=== PATIENT | male | born 2000 | race Caucasian/White ===

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

== ENCOUNTER 2021-04-21 13:13 | Emergency (ER) | payer MEDICAID, SELFPAY ==
[2021-04-21 13:17] VITALS: BP 133/82; PULSE 115; RESP 17; TEMP 37.2; O2SAT 97; BMI 34.2
--- NOTE | 2021-04-21 16:09 | EX.ED.DYSGE1 ---
HPI History of Present Illness Chief Complaint: General Illness Informant: patient Narrative Narrative: Presents for Covid testing. Reports congestion mild sore throat and headache since yesterday. He states his mother's boyfriend was diagnosed recently but has been in quarantine. He is not vaccinated. Denies any dyspnea. Denies vomiting or diarrhea. Denies any loss of taste or smell. Tolerating oral fluids. No other complaints. Prior similar symptoms: No PFSH PFSH Home Medications Vyvanse 50 mg PO DAILY 04/02/14 [History Last Taken Unknown] cephalexin 500 mg PO Q6 #28 cap 07/01/19 [Rx Last Taken Unknown] mupirocin 1 applic NASAL TID #1 tube 07/01/19 [Rx Last Taken Unknown] sulfamethoxazole-trimethoprim 1 tab PO BID #14 tab 07/01/19 [Rx Last Taken Unknown] cephalexin 500 mg PO Q6 #40 cap 07/29/19 [Rx Last Taken Unknown] sulfamethoxazole-trimethoprim 1 tab PO BID #20 tab 07/29/19 [Rx Last Taken Unknown] Allergy/AdvReac Type Severity Reaction Status Date / Time No Known Allergies Allergy Verified 07/29/19 22:23 Social History Smoking Status: Never smoker ROS ROS ED Constitutional Constitutional ED: Denies chills, fever(s) or sweats Eyes Eyes: Denies change in vision ENT ENT ED: Reports sore throat; Denies dysphagia Cardiovascular Cardiovascular: Denies chest pain, leg edema, palpitations or racing heartbeat Respiratory/Chest Respiratory/Chest: Denies cough, dyspnea or dyspnea on exertion Gastrointestinal Gastrointestinal: Denies abdominal pain, diarrhea, nausea or vomiting Genitourinary Genitourinary ED: Denies dysuria, hematuria or urinary frequency Musculoskeletal Musculoskeletal: Denies back pain, extremity pain or neck pain Integumentary Denies rash or wounds Neurologic Neurologic: Reports headache(s); Denies paresthesias or weakness EXAM Physical Exam Const Vital Signs: 04/21/21 13:17 04/21/21 15:51 Temperature 99.0 F Temperature Source Temporal Pulse Rate 115 H Respiratory Rate 17 Respiratory Effort Normal Non-Labored Respiratory Pattern Normal Blood Pressure 133/82 H Blood Pressure Mean 99 Pulse Ox 97 Oxygen Delivery Method Room Air Positive well nourished and well developed General Appearance ED: well developed and NAD HEENT Reports moist mucous membranes HEENT Narrative: Mild posterior pharyngeal erythema. Tonsils absent. No exudates. No trismus. normocephalic and atraumatic Eyes PERRL, EOMs intact bilaterally and conjunctivae normal General Eye ED: Yes normal appearance of both eyes Neck no lymphadenopathy and supple Neck Narrative: No meningismus General: Negative for tenderness Chest Wall Chest: Negative for tenderness Resp normal respiratory effort and normal air movement Effort and Inspection: symmetric chest movement; Negative for respiratory distress Cardio regular rhythm and no murmurs Rate: tachycardic Peripheral Pulses: pulses 2+ throughout GI normal to inspection, nondistended, normoactive bowel sounds and non-tender Palpation: Negative for guarding or rebound tenderness present Back/Spine no CVA tenderness and no thoracic nor lumbar tenderness Extremity normal to inspection General Extremety ED: Negative for edema or tenderness General Extremity: Negative for edema Neuro oriented x3 and no sensory deficits noted Sensorium / Orientation: awake and alert Skin no rashes or lesions noted and no wounds MDM MDM MDM Narrative Medical decision making narrative: Rapid Covid obtained returned negative. Patient does have erythema posterior pharynx, no exudates. Discussed viral nature at this time. Discussed with patient possibility of false negative Covid due to onset only for day. He will monitor for worsening symptoms. Return precautions discussed. He will continue Tylenol and Motrin as needed continue oral fluids. All questions were answered. Patient is being discharged under pandemic conditions under declared global, national and state disaster activation, with limited medical resources. Patient and community understands this. Results discussed in layman's terms to the patient satisfaction. All questions answered in layman's terms. Patient understands importance of follow-up care as directed. Patient has been instructed to return to the ED immediately if new symptoms, problems, or questions occur. We mutually agree with the plan of disposition. The patient understand that they may call or return with any questions or concerns at any time. Discharge Plan Triage Chief Complaint: General Illness ED Provider: Carlos Crump Dx/Rx/DC Orders Clinical Impression: Pharyngitis, Suspected 2019-nCoV infection Instructions: Coronavirus Disease 2019 (COVID-19): Caring for Yourself or Others, Self-Care for Sore Throats Prescriptions: No Action Vyvanse 50 mg PO DAILY RF: 0 sulfamethoxazole-trimethoprim 1 TABLET tablet 1 tab PO BID Qty: 14 RF: 0 mupirocin 1 APPLIC ointment 1 applic NASAL TID Qty: 1 RF: 0 cephalexin 500 MG capsule 500 mg PO Q6 Qty: 28 RF: 0 sulfamethoxazole-trimethoprim 1 TABLET tablet 1 tab PO BID Qty: 20 RF: 0 cephalexin 500 MG capsule 500 mg PO Q6 Qty: 40 RF: 0 Primary Care Provider: Erick Jackson Referrals: Erick Jackson MD [Primary Care Provider] - 1 Week if not improving Activity Restrictions/Additional Instructions: Your day 1 of symptoms, there is possibility of false negative from rapid test today. Monitor for worsening symptoms. Continue Tylenol Motrin and oral fluids. Disposition Disposition: Home, Self Care
[2021-04-21 16:26] VITALS: BP 109/74; PULSE 62; RESP 15; O2SAT 98
== END 2021-04-21 16:27 | disposition home or self-care (01) ==
LOC: ED 16:20
PROVIDERS: Emergency Provider Emergency Medicine; PCP Pediatrics
DX: J02.9 Acute pharyngitis, unspecified (principal); Z20.822 Contact with and (suspected) exposure to COVID-19
CPT/HCPCS: 87426; 99282

== ENCOUNTER 2021-04-24 06:57 | Emergency (ER) | payer MEDICAID, SELFPAY ==
[2021-04-24 06:58] VITALS: BP 123/78; PULSE 89; RESP 16; TEMP 36.1; O2SAT 100; BMI 33.3
--- NOTE | 2021-04-24 07:08 | EX.ED.DYSGE1 ---
HPI History of Present Illness Chief Complaint: Cold Sx Informant: patient Onset/Context/Timing Onset: Days (4 days) Context: Gradual Onset Current Severity: Mild Maximum Severity: Mild Narrative Narrative: Patient presents with continued cold symptoms. Patient was seen on the with 1 day history of congestion and sore throat. He tested negative for Covid at that time. Patient states he continues to have symptoms and was told it could have been a false negative test and is requesting a another test before going back to work. He reports temperature in the high 99 range. He has mild cough with clear sputum. PFSH PFSH no medical history Home Medications Vyvanse 50 mg PO DAILY 04/02/14 [History Last Taken Unknown] cephalexin 500 mg PO Q6 #28 cap 07/01/19 [Rx Last Taken Unknown] mupirocin 1 applic NASAL TID #1 tube 07/01/19 [Rx Last Taken Unknown] sulfamethoxazole-trimethoprim 1 tab PO BID #14 tab 07/01/19 [Rx Last Taken Unknown] cephalexin 500 mg PO Q6 #40 cap 07/29/19 [Rx Last Taken Unknown] sulfamethoxazole-trimethoprim 1 tab PO BID #20 tab 07/29/19 [Rx Last Taken Unknown] Allergy/AdvReac Type Severity Reaction Status Date / Time No Known Allergies Allergy Verified 07/29/19 22:23 Social History Smoking Status: Never smoker ROS ROS ED Constitutional Constitutional ED: Denies chills or fever(s) Eyes Eyes: Denies change in vision ENT ENT ED: Reports sore throat and other Details: Congestion Cardiovascular Cardiovascular: Denies chest pain Respiratory/Chest Respiratory/Chest: Reports cough and sputum; Denies dyspnea Gastrointestinal Gastrointestinal: Denies abdominal pain, diarrhea, nausea or vomiting Genitourinary Genitourinary ED: Denies dysuria Musculoskeletal Musculoskeletal: Denies back pain Integumentary Denies rash Neurologic Neurologic: Denies headache(s) or weakness Allergic/Immunologic Allergic/Immunologic ED: Denies urticaria EXAM Physical Exam Const Vital Signs: 04/24/21 06:58 Temperature 96.9 F L Temperature Source Oral Pulse Rate 89 Respiratory Rate 16 Respiratory Effort Normal Non-Labored Respiratory Pattern Normal Blood Pressure 123/78 H Blood Pressure Mean 93 Pulse Ox 100 Oxygen Delivery Method Room Air Positive well nourished and well developed General Appearance ED: well developed HEENT Reports normocephalic, head/scalp atraumatic and TM's clear HEENT Narrative: Posterior pharynx examination unremarkable. Tympanic Membrane ED: Yes TM's clear Eyes PERRL and EOMs intact bilaterally Neck supple Chest Wall inspection of chest normal and palpation of chest normal Resp normal respiratory effort and clear to auscultation bilaterally Cardio regular rate and regular rhythm GI normal to inspection, nondistended, normoactive bowel sounds Palpation: soft Extremity normal to inspection Neuro oriented x3 and no sensory deficits noted Sensorium / Orientation: alert Motor Exam: strength 5/5 throughout Psych mental status grossly normal Skin no rashes or lesions noted MDM MDM MDM Narrative Medical decision making narrative: Rapid Covid test obtained. Test results will be texted to him. Treatment and Re-Evaluation Comments:: Continued supportive care measures are discussed. Discharge Plan Triage Chief Complaint: Cold Sx ED Provider: Cassie Obregon Dx/Rx/DC Orders Clinical Impression: URI (upper respiratory infection) Instructions: ED URI, Viral, No Abx (Adult) Prescriptions: No Action Vyvanse 50 mg PO DAILY RF: 0 sulfamethoxazole-trimethoprim 1 TABLET tablet 1 tab PO BID Qty: 14 RF: 0 mupirocin 1 APPLIC ointment 1 applic NASAL TID Qty: 1 RF: 0 cephalexin 500 MG capsule 500 mg PO Q6 Qty: 28 RF: 0 sulfamethoxazole-trimethoprim 1 TABLET tablet 1 tab PO BID Qty: 20 RF: 0 cephalexin 500 MG capsule 500 mg PO Q6 Qty: 40 RF: 0 Primary Care Provider: Erick Jackson Referrals: Erick Jackson MD [Primary Care Provider] - As Needed Disposition Disposition: Home, Self Care
== END 2021-04-24 07:22 | disposition home or self-care (01) ==
LOC: ED 07:22
PROVIDERS: Emergency Provider Emergency Medicine; PCP Pediatrics
DX: J06.9 Acute upper respiratory infection, unspecified (principal)
CPT/HCPCS: 87426; 99282

== ENCOUNTER 2022-11-10 14:30 | Outpatient (RCR) | payer MEDICAID, SELFPAY ==
--- NOTE | 2022-11-05 15:34 | HP.OTEVAL ---
Patient's Visit Information RODRIGO HOLLIS is a 21 year old M, referred to Occupational Therapy by YEMI Rebolledo, with a diagnosis of right hand pain. Date of Evaluation: 11/05/22 Occupational Therapist: Christel Basurto, OTR/David, CHT - Subjective This 21 year old male was seen for OT eval with dx of right hand pain- pt states he is not sure what he did. pt states his hand started hurting for a while about- pt states pain about 1-2 years. pt states he has been wearing a brace since . 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 pt had x ray and they said he had no fractures. 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 Goal:: pt will report no pain greater than 1/10 with wt. 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 bearing. with palpation throughout the SL region pt is sore. pt would benefit from skilled OT services 2x week for 4 weeks. therapy will focus on decreasing pain and stabilization genie. and strengthening. pt demo understanding and agree to POC. Rehabilitation Potential: Good - Anticipated Interventions A/AAROM/PROM, Strengthening, Modalities, Joint Protection/Energy Conservation, Ergonomic Education, Education re assistive Equipment, Education re Diagnosis - Visit Plan Frequency: 2x /Week Duration: 4 Weeks TEXT: Thank you for the opportunity to evaluate your patient. For Medicare and Medicare HMO plans, please review the plan of care and approve it. It will need to be FAXED BACK to us at [phone] for Medicare purposes. Please let me know if there are questions or concerns regarding this plan of care. Physician Signature: Date:
--- NOTE | 2023-03-10 15:18 | HP.OT.NRP ---
Patient Information Patient Information: RODRIGO HOLLIS was seen in my office for initial evaluation on 11/05/22. The following Plan of Care was established for this patient: POC Established Initial Frequency: 2x /Week Initial Duration: 4 Weeks Anticipated Interventions Anticipated Interventions: A/AAROM/PROM, Strengthening, Modalities, Joint Protection/Energy Conservation, Ergonomic Education, Education re assistive Equipment and Education re Diagnosis Last Seen Last Seen: This patient was last seen in our office 11/10/22. Pertinent comments regarding their Occupational therapy will appear below: pt was seen 2 OT sessions and due to time lapse in services pt is d/c. At this point I will be discontinuing this patient from occupational therapy. I would be happy to see this patient again in the future if found appropriate by the physician. Thank you! Christel Basurto, OTR/L, CHT
== END 2022-11-10 19:00 | disposition home or self-care (01) ==
LOC: OT 14:30
PROVIDERS: PCP Pediatrics; Referring Provider Physician Assistant; Visit Provider Physician Assistant
DX: M79.641 Pain in right hand (principal)
CPT/HCPCS: 97035; 97140; 97166

== ENCOUNTER 2023-03-20 19:31 | Emergency (ER) | payer MEDICAID, SELFPAY ==
[2023-03-20 19:32] VITALS: BP 143/87; PULSE 128; RESP 14; TEMP 37.2; O2SAT 98; BMI 32.5
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
[2023-03-20 21:24] VITALS: PULSE 97; RESP 16; O2SAT 98
== END 2023-03-20 21:25 | disposition home or self-care (01) ==
PROVIDERS: Emergency Provider Emergency Medicine; PCP Pediatrics; Visit Provider Emergency Medicine
DX: R05.9 Cough, unspecified (principal); F17.290 Nicotine dependence, other tobacco product, uncomplicated
CPT/HCPCS: 71046; 99282

== ENCOUNTER 2023-06-14 18:48 | Emergency (ER) | payer SELFPAY ==
[2023-06-14 18:49] VITALS: BP 148/99; PULSE 98; RESP 16; TEMP 36.4; O2SAT 99; BMI 33.1
--- NOTE | 2023-06-14 19:58 | CT_ITS ---
INDICATION: Injury/Pain EXAMINATION: CT BRAIN - CT Head or Brain W/O Contrast Injection TECHNIQUE: Multiple axial images were obtained of the head without intravenous contrast. A radiation dose optimization technique was used for this scan. IV Contrast dosage and agent: None. RADIATION DOSAGE (If Supplied By Facility): CTDIvol = ( 44.99 ) mGy, DLP = ( 846.73 ) mGycm COMPARISON: No relevant prior examinations for comparison FINDINGS: HEMISPHERES: 1. The cerebral parenchyma, ventricular system, subarachnoid spaces have normal configuration and density. There is a normal gyral pattern. There is normal rick/white differentiation. No midline shift.. 2. The hemispheric white matter has normal appearance. Incidental note of a cavum septum pellucidum. 3. No intraparenchymal mass, hemorrhage, or acute territorial infarct. CEREBELLUM - BRAINSTEM: The cerebellum, brainstem, basilar and suprasellar cisterns have normal appearance. No Chiari malformation. PITUITARY: Infundibulum and pituitary have normal configuration. Midline structures appear normal. CSF SPACES: Appropriate for age. No hydrocephalus. Basal cisterns are patent. VESSELS: 1. No significant vascular calcifications in the cavernous carotid vessels. 2. No hyperdense vascular signs noted.. ORBITS AND PARANASAL SINUSES: 1. Normal appearance of the bony orbits. Normal appearance of the globes and retrobulbar soft tissues.. 2. Paranasal sinuses are clear with the exception of mucous retention cyst in the RIGHT maxillary antrum.. BONY ELEMENTS: Bony elements of the cranial vault, facial skeleton and skull base have normal appearance. SCALP AND SOFT TISSUES: Normal appearance of the soft tissues of the scalp and the visualized face OTHER: None ASPECTS Score for Acute Strokes: 10 CT/Brain/Head without Contrast IMPRESSION: 1. Normal CT examination of brain. 2. No intracranial evidence of acute traumatic injury. 3. No intracranial mass, hemorrhage or acute territorial infarct. 4. No fractures noted. 5. Incidental note of cavum septum pellucidum. 6. No radiographically significant sinus disease.. Electronically Signed: Jose Montana MD at 20:44 EST ,
--- NOTE | 2023-06-14 20:10 | RAD_ITS ---
INDICATION: Injury/Pain EXAMINATION/TECHNIQUE: X-RAY - XR Spine Lumbar 2 or 3 Views COMPARISON: None. FINDINGS: VERTEBRAE: Preserved vertebral body height. No fracture. No spondylolisthesis. Preservation of the normal lumbar lordosis. No significant facet arthropathy. Normal appearance of visualized sacrum, sacroiliac joints and visualized pelvic ring. DISCS: Disc spaces are maintained. INCLUDED ABDOMEN: Included bowel gas pattern is non-obstructive. RAD/Lumbar Spine 2 or 3 Views IMPRESSION: No evidence of lumbar spinal fracture or spondylolisthesis. Electronically Signed: Jose Montana MD at 20:57 EST ,
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
[2023-06-14 21:10] VITALS: RESP 14
== END 2023-06-14 21:11 | disposition home or self-care (01) ==
PROVIDERS: Emergency Provider Emergency Medicine; Visit Provider Emergency Medicine
DX: S09.90XA Unspecified injury of head, initial encounter (principal); S30.0XXA Contusion of lower back and pelvis, initial encounter; F17.290 Nicotine dependence, other tobacco product, uncomplicated; V49.88XA Car occupant (driver) (passenger) injured in other specified transport accidents, initial encounter
CPT/HCPCS: 70450; 72100; 99282

== ENCOUNTER 2023-07-18 19:05 | Emergency (ER) | payer SELFPAY ==
[2023-07-18 19:07] VITALS: BP 130/94; PULSE 117; RESP 18; TEMP 36.6; O2SAT 100; BMI 34.5
--- NOTE | 2023-07-18 19:09 | EKG12_ITS ---
Test Reason : PALPS Blood Pressure : / mmHG Vent. Rate : 098 BPM Atrial Rate : 098 BPM P-R Int : 150 ms QRS Dur : 090 ms QT Int : 346 ms P-R-T Axes : 042 060 041 degrees QTc Int : 441 ms Normal sinus rhythm Normal ECG Confirmed by SY MATHEWS, MARSHAL ([id number]), international editorial producer MILLIE FRIEDMAN ([id number]) on 07/26/2023 6:48:07 AM Referred By: Confirmed By:DENISE DAN MD
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
== END 2023-07-18 19:41 | disposition home or self-care (01) ==
PROVIDERS: Emergency Provider Emergency Medicine; PCP Preventive Medicine Occupational Medicine; Visit Provider Emergency Medicine
DX: R07.9 Chest pain, unspecified (principal); R00.2 Palpitations; F17.290 Nicotine dependence, other tobacco product, uncomplicated
CPT/HCPCS: 93005; 99282

== ENCOUNTER → 2023-09-15 | Outpatient (CLI) | payer OTHER, SELFPAY ==
[2023-09-15 17:00] LABS: Absolute Lymphocyte Count 2.91 X10^3/uL (0.83-4.51); Absolute Neutrophil Count 5.8 X10^3/uL (2.0-7.7); Basophil# 0.04 X10^3/uL; Basophil% 0.4 % (0-1); Eosinophil# 0.15 X10^3/uL; Eosinophils% 1.6 % (0-5); Hemoglobin 13.9 g/dL (13.0-16.5); Lymphocyte # 2.91 X10^3/ul (0.83-4.51); Lymphocyte % 30.6 % (19-41); Mean Corp Hgb Conc 33.9 g/dL (32-36); Mean Corpuscular Hgb 29.4 pg (27.0-32.0); Mean Corpuscular Volume 86.9 fL (80-94); Mean Platelet Vol. 10.5 fl (6.2-12.0); Monocyte# 0.64 X10^3/uL; Monocyte% 6.7 % (0-10); NRBC Flagged by Analyzer 0 % (0-5); Neutrophil # 5.75 X10^3/uL (2.7-7.7); Neutrophil % 60.5 % (47-70); Platelet Count 303 K/mm3 (150-450); RBC Distribution Width CV 12.3 % (11.6-14.6); RBC Distribution Width SD 39.2 fl (35.1-43.9); Red Blood Count 4.72 M/mm3 (4.6-6.2); White Blood Count 9.5 K/mm3 (4.4-11.0)
[2023-09-15 17:19] LABS: Vitamin B12 502 pg/mL (211-911); Vitamin D,25 Hydroxy 23.3 ng/mL
[2023-09-15 17:24] LABS: ALB/GLOB Ratio 1.1 RATIO (0.9-2.4); AST(SGOT) 29 U/L (15-37); Alanine Aminotransfer ALT/SGPT 36 U/L (16-61); Albumin, Serum 4.1 g/dL (3.2-5.0); Alkaline Phosphatase 77 U/L (45-117); Anion Gap 3 (5-15); BUN 16 mg/dL (7-18); BUN/Creat Ratio 15.2 RATIO (10-20); Calcium,Total 9.5 mg/dL (8.5-10.1); Chloride 105 mmol/L (98-107); Creatinine, Serum 1.05 mg/dL (0.70-1.30); EST Glomerular Filtration Rate 94 mL/min (>60); Est Glom Filt Rate - Afr Amer 114 mL/min (>60); Globulin 3.9 g/dL (2.2-4.2); Glucose 115 mg/dL (74-106); Potassium 4.3 mmol/L (3.5-5.1); Sodium Level 137 mmol/L (136-145); Thyroid Stim Hormone (TSH) 1.72 uIU/mL (0.358-3.74)
--- OUTSIDE RECORDS SUMMARY | 2023-09-15 18:58 | XMS RPT_ITS | CCD ---
Author Name Unknown Address [address] [place] [address] Organization [facility] Results Test Name Value Interpretation Reference Range Facil ity Summary Purpose Family History No Family History Records Found Advance Directives No Advanced Directives Records Found Additional Source Comments (unrecognized sect ion and content) No Status Records Found INFORMATION SOURCE (unrecogn ized section and content) FOR RECORDS PERTAINING TO PATIENTS WHO ARE OR HAVE BEEN ENROLLED IN A CHEMICAL DEPENDENCY/SUBSTANCEABUSE PROGRAM, SOME INFORMATION MAY BE OMITTED. This clinical summary was aggregated from multiple sources. Caution should be exercised in using it in the provision of clinical care. This summary normalizes information from multiple sources, and as a consequence, information in this document may materially change the coding, format and clinical context of patient data. In addition, data may be omitted in some cases. CLINICAL DECISIONS SHOULD BE BASED ON THE PRIMARY CLINICAL RECORDS. [email or web address] provides no warranty or guarantee of the accuracy or completeness of information in this document.
== END | disposition home or self-care (01) ==
LOC: BIMLAB 15:11
PROVIDERS: PCP Internal Medicine; Visit Provider Internal Medicine
DX: R51.9 Headache, unspecified (principal)
CPT/HCPCS: 36415; 80053; 82306; 82607; 84443; 85025

== ENCOUNTER 2024-02-19 11:57 | Emergency (ER) | payer OTHER, SELFPAY ==
[2024-02-19 11:59] VITALS: BP 144/76; PULSE 95; RESP 16; TEMP 36.2; O2SAT 98; BMI 31.2
--- NOTE | 2024-02-19 12:08 | ED.RN ---
Patient c/o bilateral hand/fingers tingling w/ bilateral facial numbness/tingling and states now left foot tingling.
[2024-02-19 12:10] VITALS: BMI 31.2
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
[2024-02-19 12:59] LABS: Absolute Lymphocyte Count 2.57 X10^3/uL (0.83-4.51); Absolute Neutrophil Count 4.6 X10^3/uL (2.0-7.7); Basophil# 0.05 X10^3/uL; Basophil% 0.6 % (0-1); Eosinophil# 0.07 X10^3/uL; Eosinophils% 0.9 % (0-5); Hematocrit 39.7 % (40-54); Hemoglobin 13.4 g/dL (13.0-16.5); Lymphocyte # 2.57 X10^3/ul (0.83-4.51); Lymphocyte % 33.1 % (19-41); Mean Corp Hgb Conc 33.8 g/dL (32-36); Mean Corpuscular Hgb 29.5 pg (27.0-32.0); Mean Corpuscular Volume 87.4 fL (80-94); Monocyte% 6.4 % (0-10); NRBC Flagged by Analyzer 0 % (0-5); Neutrophil # 4.55 X10^3/uL (2.7-7.7); Neutrophil % 58.7 % (47-70); Platelet Count 285 K/mm3 (150-450); RBC Distribution Width CV 12.6 % (11.6-14.6); RBC Distribution Width SD 39.8 fl (35.1-43.9); Red Blood Count 4.54 M/mm3 (4.6-6.2); White Blood Count 7.8 K/mm3 (4.4-11.0)
[2024-02-19 13:15] LABS: Anion Gap 7 (5-15); BUN 7 mg/dL (7-18); BUN/Creat Ratio 9.7 RATIO (10-20); Calcium,Total 8.9 mg/dL (8.5-10.1); Chloride 104 mmol/L (98-107); Creatinine, Serum 0.72 mg/dL (0.70-1.30); EST Glomerular Filtration Rate 144 mL/min (>60); Est Glom Filt Rate - Afr Amer 174 mL/min (>60); Estimated Creatinine Clearance 218.65 ml/min; Glucose 91 mg/dL (74-106); Potassium 3.4 mmol/L (3.5-5.1); Sodium Level 137 mmol/L (136-145)
[2024-02-19] MEDS: 0.9% Normal Saline (1000mL) 1,000 ML 999 ML IV (13:36)
[2024-02-19] MEDS: Potassium Chloride Oral Tablet 20 MEQ 40 MEQ PO (13:58)
[2024-02-19 14:05] VITALS: BP 136/88; PULSE 84; RESP 14; TEMP 36.1; O2SAT 100
== END 2024-02-19 14:14 | disposition home or self-care (01) ==
PROVIDERS: Nurse Practitioner; Emergency Provider Emergency Medicine; PCP Internal Medicine; Visit Provider Emergency Medicine
DX: R20.2 Paresthesia of skin (principal); E87.6 Hypokalemia; F17.290 Nicotine dependence, other tobacco product, uncomplicated
CPT/HCPCS: 80048; 85025; 96360; 99283; J7030; A4216

== ENCOUNTER 2024-05-25 23:11 | Emergency (ER) | payer OTHER, SELFPAY ==
[2024-05-25 23:13] VITALS: BP 147/77; PULSE 88; RESP 16; TEMP 36.8; O2SAT 99; BMI 31.1
--- NOTE | 2024-05-25 23:21 | EKG12_ITS ---
Test Reason : CP Blood Pressure : / mmHG Vent. Rate : 080 BPM Atrial Rate : 080 BPM P-R Int : 146 ms QRS Dur : 092 ms QT Int : 352 ms P-R-T Axes : 054 057 046 degrees QTc Int : 405 ms Normal sinus rhythm with sinus arrhythmia Normal ECG Confirmed by Benny Hester ([id number]), restaurant expeditor JEROMY ROSALES ([id number]) on 05/26/2024 1:41:37 PM Referred By: Confirmed By:Benny Hester
[2024-05-25 23:34] VITALS: PULSE 95; RESP 20; O2SAT 99
--- NOTE | 2024-05-25 23:44 | RAD_ITS ---
INDICATION: cp EXAMINATION/TECHNIQUE: X-RAY - XR Chest 2 Views COMPARISON: Prior study dated: 03/20/2023 FINDINGS: LINES/DEVICES: None. LUNGS: The lungs are well expanded. No consolidation, edema or effusion. No pneumothorax. MEDIASTINUM AND CARDIOVASCULAR STRUCTURES: Cardiac silhouette not enlarged. Central airways and mediastinal contour are unremarkable. BONES AND SOFT TISSUES: No acute abnormality. RAD/Chest PA and Lateral IMPRESSION: No acute pulmonary finding. Electronically Signed: Kaiser Busch MD at 23:53 EDT ,
--- NOTE | 2024-05-25 23:53 | ED.VIS.CHEST ---
HPI History of Present Illness Chief Complaint: Chest Pain Informant: patient and parent Onset/Context/Timing Onset: Today and Hours Activity at onset: gradual Timing: Continuous Quality: Positive for Dull Location: Left Chest Current Severity: Gone Maximum Severity: Mild Relieved By: Nothing Associated Symptoms: Positive for Lightheadedness; Negative for Nausea, Vomiting, Diaphoresis, Dyspnea, Cough, Fever, Acid Reflux or Palpitations Narrative Narrative: 23-year-old male with no past medical or surgical history. [place] [employer] [employer] [place] On the way home he felt somewhat lightheaded. He had some atypical left arm numbness and chest discomfort. That occurred around 9:45 PM. It is since resolved. He has no cardiac history. He has had no recent exertional dyspnea or exertional chest pain. He has never been evaluated for this before. A prior episode in the past but never got seen for it. He has no history of DVT or PE or risk factors. There is no family history of cardiac disease any young age or clotting problems. Currently is symptom-free. Prior Similar Symptoms: Yes and No Recent Illness/Hospitalization: No CVD Risk Factors: Negative for Hypertension, Diabetes, Hypercholesterolemia or Family History 1' </=55 PE Risk Factors: Negative for Recent Travel/Surgery, Recent Immobilization, Prior DVT or PE, Cancer or OCP + Smoking + >/=35 TAD Risk Factors: Negative for Marfan's Syndrome [facility] Medical History External hemorrhoid Stress headaches ADHD Right hand pain Recurrent MRSA abscess Home Medications ?Medication ?Instructions ?Recorded ?Last Taken ?Type NK 05/26/24 Unknown History Allergy/AdvReac Type Severity Reaction Status Date / Time No Known Allergies Allergy Verified 05/25/24 23:15 Family History Grandfather Heart disease Grandmother Hypertension Diabetes Brother Autism Surgical History Hx of tonsillectomy History of repair of congenital cleft palate Social History adopted: No household members: family current occupational status: employed current occupation: [employer] pets and animals: Yes pets and animals: dog(s) Smoking Status: Current every day smoker tobacco type: e-cigarettes Tobacco: How many years used: 3 Electronic Cigarette Use: not used alcohol intake: current alcohol intake frequency: a few times a month substance use type: does not use caffeine: No frequency: 3-4 times per week seatbelt use: always do you feel safe at home: Yes ROS ROS ED ROS Narrative Atypical chest discomfort. Lightheadedness. Constitutional Constitutional ED: Denies chills or fever(s) Eyes Eyes: Reports none ENT ENT ED: Denies ear pain Cardiovascular Cardiovascular: Reports as per HPI and chest pain; Denies palpitations or racing heartbeat Respiratory/Chest Respiratory/Chest: Denies cough or dyspnea Gastrointestinal Gastrointestinal: Denies abdominal pain Genitourinary Genitourinary ED: Denies dysuria or hematuria Musculoskeletal Musculoskeletal: Denies arthralgias Integumentary Denies abscess Neurologic Neurologic: Denies headache(s) Psychiatric Psychiatric: Denies anxiety or depression Endocrine Endocrinology: Denies cold intolerance Hematologic/Lymphatic Hematologic/Lymphatic: Denies easy bleeding Allergic/Immunologic Allergic/Immunologic ED: Denies mouth swelling EXAM Physical Exam Narrative Exam Narrative: Well-appearing male vital signs stable afebrile. Pulse ox 9 9% on room air no signs hypoxia. Clinically looks well sitting upright in bed. Mom present the room. H EENT exam normal. Neck nontender no JVD. Lungs clear to auscultation bilateral. Heart regular rate and rhythm rate about 80 no murmur. Chest wall ribs nontender. Abdomen soft nontender. Moving all 4 extremities. Calves are nontender without edema or cords. Normal strength. Normal sensation. Normal range of motion. 5 out of 5 child welfare caseworker strength. Equal symmetrical radial pulses. Back nontender. Chest nontender. He is awake and alert. No focal motor deficits. Benign exam. Const Vital Signs: 05/25/24 23:13 05/25/24 23:34 05/25/24 23:58 Temperature 98.2 F Temperature Source Oral Pulse Rate 88 95 89 Respiratory Rate 16 20 H 20 H Blood Pressure 147/77 H Blood Pressure Mean 100 Pulse Ox 99 99 Oxygen Delivery Method Room Air 05/26/24 00:00 05/26/24 00:15 Temperature Temperature Source Pulse Rate 87 81 Respiratory Rate 15 16 Blood Pressure Blood Pressure Mean Pulse Ox 99 Oxygen Delivery Method Positive well nourished and well developed; Negative for obese, cachectic, contractures or unkempt General Appearance ED: well developed and NAD; Negative for unkempt, cachectic, contractures or pallor Nutritional Appearance: Negative for cachectic or obese HEENT Reports moist mucous membranes normocephalic and atraumatic; Negative for trauma or tenderness Eyes PERRL and EOMs intact bilaterally General Eye ED: Negative for pale conjunctiva or scleral icterus Neck no lymphadenopathy, supple and no JVD General: Negative for tenderness Chest Wall inspection of chest normal and palpation of chest normal Chest: Negative for tenderness Resp normal respiratory effort and clear to auscultation bilaterally Effort and Inspection: Negative for respiratory distress Auscultation: Negative for rales, rhonchi or wheezes Cardio regular rate, regular rhythm, S1 normal heart sound, S2 normal heart sound and no murmurs Rate: Negative for bradycardia or tachycardic Peripheral Pulses: pulses 2+ throughout GI normal to inspection, nondistended, normoactive bowel sounds, soft to palpation, non-tender, non-distended and no masses Back/Spine no CVA tenderness and no thoracic nor lumbar tenderness Extremity normal to inspection General Extremety ED: Negative for edema, pulses abnormal or tenderness General Extremity: Negative for edema or pulses abnormal Neuro oriented x3 and CN's II-XII intact bilaterally Sensorium / Orientation: awake, alert, oriented to person, oriented to place and oriented to time; Negative for confused, lethargic or stuporous Motor Exam: strength 5/5 throughout Psych mental status grossly normal Appearance: Negative for unkempt Attitude: No agitated Mood & Affect: Negative for depressed, anxious or tearful Skin no rashes or lesions noted and no wounds General Skin Exam: Negative for jaundice or pallor Rashes: No rashes noted Trauma: Negative for abrasion, laceration or puncture Heart Score History: Slightly/Non-Suspicious ECG: Normal Age: </= 45 years Risk Factors: No Risk Factors Troponin: </= Normal Limit Score: 0 MDM MDM MDM Narrative Medical decision making narrative: 23-year-old with atypical not reproducible chest discomfort that is since resolved. He has a benign exam. He has a normal chest x-ray and EKG. Undergo cardiac workup mainly because of his recent lightheadedness. I suspect it will be negative. He will be discharged home. I do not think he needs a 2-hour troponin. He has no risk factors or family history of clotting problems I do not think he needs a D-dimer. Mom states she has a history of anxiety and panic attacks and wonders if this is what he may have had which is a possibility. Repeat exam patient is doing well at 12:38 AM. I do not think this is cardiac in etiology. He is pain-free. He is only 23 with no risk factors I do not think he needs a 2-hour troponin. He will be discharged home with outpatient follow-up as needed. Return if worse. Mom and patient are comfortable with the plan. This may be secondary to anxiety. History & Record Review Discussion w/independent historian: Patient and Family Lab Data Attestation: I reviewed the patient's lab results. Lab results narrative: CBC shows white count of 14.7. H&H 14 and 42. Platelets 279. Electrolytes unremarkable gap 6. Normal BUN and creatinine. Glucose 88. Troponin 5. Labs: Laboratory Results - last 24 hr 05/26/24 00:04 WBC 14.7 H RBC 4.78 Hgb 14.4 Hct 42.1 MCV 88.1 MCH 30.1 MCHC 34.2 RDW Std Deviation 39.7 RDW Coeff of Edmundo 12.4 Plt Count 279 MPV 10.6 Immature Gran % (Auto) 0.400 Neut % (Auto) 71.8 H Lymph % (Auto) 20.6 [place] % (Auto) 6.2 Eos % (Auto) 0.7 Baso % (Auto) 0.3 Absolute Neuts (auto) 10.5 H Absolute Lymphs (auto) 3.02 Nucleated RBC % 0 Sodium 140 Potassium 3.6 Chloride 106 Carbon Dioxide 28.0 Anion Gap 6 BUN 16 Creatinine 0.87 Estim Creat Clear Calc 180.63 Est GFR (MDRD) Af Amer 140 Est GFR (MDRD) Non-Af 116 BUN/Creatinine Ratio 18.3 Glucose 88 Calcium 9.0 Troponin I High Sens 5 Radiography Chest X-Ray - ED: 2 View, Read by ED Physician, Normal, Heart, Lungs, Mediastinum, Bony Structures and No Acute Disease Diagnostic Testing: Clinical Impression(s) from Imaging Studies Chest X-Ray 05/25/24 23:44 IMPRESSION: No acute pulmonary finding. Electronically Signed: Kaiser Busch MD at 23:53 EDT , Chest x-ray, 2 views, AP and lateral, interpreted myself shows no acute abnormality. Normal cardiac silhouette. Normal mediastinum. Normal lung pulido. No pneumothorax. No acute abnormalities. No effusions. Rhythm Strip Rhythm Strip: Sinus Rhythm Rate: 80 Ectopy: None EKG Initial EKG: Attestation: I personally reviewed and interpreted this EKG as follows: Interpretation: Sinus Rhythm and No Acute Injury Pattern Comments: Normal sinus rhythm rate 80 no acute signs of [place] or ischemia. Discharge Plan Triage Chief Complaint: Chest Pain ED Provider: Bridger Jo Dx/Rx/DC Orders Clinical Impression: Atypical chest pain Instructions: ED Chest Pain, Noncardiac Prescriptions: No Action NK Primary Care Provider: Pauline Boudreaux Referrals: Pauline Boudreaux MD [Primary Care Provider] - As Needed Activity Restrictions/Additional Instructions: Your labs, chest x-ray and EKG were all normal. Follow-up your primary care provider as needed. Return if feeling worse. This may or may not be secondary to anxiety. Print Language: Nauruan Disposition Disposition: Home, Self Care
--- NOTE | 2024-05-25 23:55 | ED.RN ---
REFERRED TO BRADY GALVEZ ALSO
[2024-05-25 23:58] VITALS: PULSE 89; RESP 20
[2024-05-26] VITALS: PULSE 87; RESP 15
[2024-05-26 00:15] VITALS: PULSE 81; RESP 16; O2SAT 99
[2024-05-26 00:15] LABS: Absolute Lymphocyte Count 3.02 X10^3/uL (0.83-4.51); Absolute Neutrophil Count 10.5 X10^3/uL (2.0-7.7); Basophil# 0.05 X10^3/uL; Basophil% 0.3 % (0-1); Eosinophil# 0.11 X10^3/uL; Eosinophils% 0.7 % (0-5); Hematocrit 42.1 % (40-54); Hemoglobin 14.4 g/dL (13.0-16.5); Lymphocyte # 3.02 X10^3/ul (0.83-4.51); Lymphocyte % 20.6 % (19-41); Mean Corp Hgb Conc 34.2 g/dL (32-36); Mean Corpuscular Hgb 30.1 pg (27.0-32.0); Mean Corpuscular Volume 88.1 fL (80-94); Mean Platelet Vol. 10.6 fl (6.2-12.0); Monocyte# 0.91 X10^3/uL; Monocyte% 6.2 % (0-10); NRBC Flagged by Analyzer 0 % (0-5); Neutrophil # 10.53 X10^3/uL (2.7-7.7); Neutrophil % 71.8 % (47-70); Platelet Count 279 K/mm3 (150-450); RBC Distribution Width CV 12.4 % (11.6-14.6); RBC Distribution Width SD 39.7 fl (35.1-43.9); Red Blood Count 4.78 M/mm3 (4.6-6.2); White Blood Count 14.7 K/mm3 (4.4-11.0)
[2024-05-26 00:29] LABS: Anion Gap 6 (5-15); BUN 16 mg/dL (7-18); BUN/Creat Ratio 18.3 RATIO (10-20); Chloride 106 mmol/L (98-107); Creatinine, Serum 0.87 mg/dL (0.70-1.30); EST Glomerular Filtration Rate 116 mL/min (>60); Est Glom Filt Rate - Afr Amer 140 mL/min (>60); Estimated Creatinine Clearance 180.63 ml/min; Glucose 88 mg/dL (74-106); Potassium 3.6 mmol/L (3.5-5.1); Sodium Level 140 mmol/L (136-145); Troponin-I HS (w/2H Reflex) 5 pg/mL (3.0-78.0)
[2024-05-26 00:46] VITALS: BP 145/54; PULSE 85; RESP 20; TEMP 36.7; O2SAT 95
[2024-05-26 02:05] LABS: Reflex Troponin-HS? (from REC) Y
== END 2024-05-26 00:46 | disposition home or self-care (01) ==
PROVIDERS: Emergency Provider Emergency Medicine; PCP Internal Medicine; Visit Provider Emergency Medicine
DX: R07.89 Other chest pain (principal); R42 Dizziness and giddiness; F41.9 Anxiety disorder, unspecified; F90.9 Attention-deficit hyperactivity disorder, unspecified type; F17.290 Nicotine dependence, other tobacco product, uncomplicated
CPT/HCPCS: 71046; 80048; 84484; 85025; 93005; 99283; A4216

== ENCOUNTER 2024-07-20 20:40 | Emergency (ER) | payer OTHER, SELFPAY ==
[2024-07-20 20:42] VITALS: BP 116/90; PULSE 110; RESP 18; TEMP 37.7; O2SAT 100; BMI 30.2
--- NOTE | 2024-07-20 21:35 | RAD_ITS ---
STUDY: X-RAY CHEST REASON FOR EXAM: Male, 23 years old. Cough, fever TECHNIQUE: Frontal and lateral views of the chest. COMPARISON: May 25, 2024 FINDINGS: The lungs are clear and expanded. There is no demonstrated pleural abnormality. Normal size heart. Normal mediastinum and jerald. Normal visualized pulmonary arteries. Normal visualized aortic arch and descending thoracic aorta. Normal visualized thoracic spine. Normal visualized ribs, clavicles, and shoulders. There is no demonstrated abnormality of the visualized soft tissue structures of the upper abdomen. RAD/Chest PA and Lateral IMPRESSION: Normal x-ray examination of the chest. Electronically Signed: Ramon Singh MD at 23:33 EST ,
--- NOTE | 2024-07-20 21:53 | EX.ED.DYSGE1 ---
HPI <YEMI Cole - Last Filed: 07/20/24 22:09> History of Present Illness Chief Complaint: Cold Sx Narrative Narrative: Patient presenting today with flulike symptoms that started a few days ago. He reports a sore throat, bilateral ear pain, headache, body aches, chills, nasal congestion, and a mild nonproductive cough. He denies fevers, shortness of breath, chest pain, abdominal pain, nausea, and vomiting. He reports that he is healthy otherwise. [facility] <YEMI Cole - Last Filed: 07/20/24 22:09> [facility] Medical History External hemorrhoid Stress headaches ADHD Right hand pain Recurrent MRSA abscess Home Medications ?Medication ?Instructions ?Recorded ?Last Taken ?Type lorazepam 1 mg tablet (Ativan) 1 mg PO DAILY PRN anxiety 10 days 05/26/24 Unknown Rx #5 tabs ibuprofen 600 mg tablet 600 mg PO 4X/DAY PRN fever or pain 07/20/24 Unknown Rx #40 tabs prednisone 10 mg tablet 10 mg PO DAILY #48 TABLETS 07/20/24 Unknown Rx Allergy/AdvReac Type Severity Reaction Status Date / Time No Known Allergies Allergy Verified 07/20/24 20:44 Family History Grandfather Heart disease Grandmother Hypertension Diabetes Brother Autism Surgical History Hx of tonsillectomy History of repair of congenital cleft palate Social History adopted: No household members: family current occupational status: employed current occupation: [employer] pets and animals: Yes pets and animals: dog(s) Smoking Status: Current every day smoker tobacco type: e-cigarettes Tobacco: How many years used: 3 Electronic Cigarette Use: not used alcohol intake: current alcohol intake frequency: a few times a month substance use type: does not use caffeine: No frequency: 3-4 times per week seatbelt use: always do you feel safe at home: Yes ROS <YEMI Cole - Last Filed: 07/20/24 22:09> ROS ED Constitutional Constitutional ED: Reports chills; Denies fever(s) ENT ENT ED: Reports ear pain bilateral, rhinorrhea and sore throat Cardiovascular Cardiovascular: Denies chest pain Respiratory/Chest Respiratory/Chest: Reports cough; Denies dyspnea Gastrointestinal Gastrointestinal: Denies abdominal pain, nausea or vomiting Musculoskeletal Musculoskeletal: Reports myalgias; Denies neck pain Integumentary Denies rash Neurologic Neurologic: Denies weakness EXAM <Nani Deleon PA - Last Filed: 07/20/24 22:09> Physical Exam Const Vital Signs: 07/20/24 20:42 07/20/24 22:06 Temperature 99.8 F H Temperature Source Oral Pulse Rate 110 H Respiratory Rate 18 Respiratory Effort Normal Respiratory Pattern Normal Blood Pressure 116/90 H Blood Pressure Mean 98 Pulse Ox 100 Oxygen Delivery Method Room Air Positive well nourished, well developed and no apparent distress General Appearance ED: well developed HEENT Reports normocephalic, head/scalp atraumatic and TM's clear HEENT Narrative: Posterior pharynx slightly erythematous, no tonsillar exudate, uvula midline, no trismus, no drooling Tympanic Membrane ED: Yes TM's clear bilateral Mouth ED: Yes moist mucous membranes normal Eyes PERRL and EOMs intact bilaterally Neck full ROM and supple Neck Narrative: Right posterior auricular lymphadenopathy, posterior occipital lymphadenopathy. Chest Wall inspection of chest normal Resp normal respiratory effort and clear to auscultation bilaterally Cardio regular rate and regular rhythm GI soft to palpation, non-tender, non-distended and no masses Back/Spine normal ROM and normal to inspection Extremity normal to inspection and full ROM Neuro oriented x3, CN's II-XII intact bilaterally, moves all extremities, no focal motor deficits and no sensory deficits noted Sensorium / Orientation: awake and alert Psych mental status grossly normal and thought process normal Skin no rashes or lesions noted and no wounds <Dr. Antonio Romero, DO - Last Filed: 07/20/24 23:42> Physical Exam Const Vital Signs: 07/20/24 20:42 07/20/24 22:06 Temperature 99.8 F H Temperature Source Oral Pulse Rate 110 H Respiratory Rate 18 Respiratory Effort Normal Respiratory Pattern Normal Blood Pressure 116/90 H Blood Pressure Mean 98 Pulse Ox 100 Oxygen Delivery Method Room Air <Dr. Gerard Chase, DO - Last Filed: 07/21/24 01:06> Physical Exam Const Vital Signs: 07/20/24 20:42 07/20/24 22:06 Temperature 99.8 F H Temperature Source Oral Pulse Rate 110 H Respiratory Rate 18 Respiratory Effort Normal Respiratory Pattern Normal Blood Pressure 116/90 H Blood Pressure Mean 98 Pulse Ox 100 Oxygen Delivery Method Room Air [facility] <YEMI Cole - Last Filed: 07/20/24 22:09> [facility] Narrative Medical decision making narrative: Patient presenting today with flulike symptoms that started a few days ago. He reports he has had nasal congestion over the past few weeks but his flu symptoms did not start until 3 to 4 days ago. He is nontoxic-appearing. He is slightly tachycardic initially, he does not appear dehydrated. He was given ibuprofen here and is tolerating p.o. Gatorade. I suspect a viral illness. Rapid strep, COVID/influenza/RSV swabs were obtained, monotest obtained. Chest x-ray obtained to rule out infiltrate and is negative. Labs are pending. Lab Data Labs: Laboratory Results - last 24 hr 07/20/24 22:01 Monoscreen POSITIVE H Radiography Diagnostic Testing: Clinical Impression(s) from Imaging Studies Chest X-Ray 07/20/24 21:35 IMPRESSION: Normal x-ray examination of the chest. Electronically Signed: Ramon Singh MD at 23:33 EST Reading Location ID and State: [facility] / [place] , Service support , <Dr. Antonio Romero DO - Last Filed: 07/20/24 23:42> [facility] History & Record Review Discussion w/independent historian: Patient Lab Data Labs: Laboratory Results - last 24 hr 07/20/24 22:01 Monoscreen POSITIVE H Radiography Diagnostic Testing: Clinical Impression(s) from Imaging Studies Chest X-Ray 07/20/24 21:35 IMPRESSION: Normal x-ray examination of the chest. Electronically Signed: Ramon Singh MD at 23:33 EST , Chest x-ray as interpreted by the emergency medicine physician reveals no acute infiltrate pneumothorax or pleural effusion Treatment and Re-Evaluation :: Patient was signed out to me while awaiting the results of his strep COVID influenza RSV Monospot and chest x-ray test. Chest x-ray revealed no acute lung pathology COVID flu RSV and strep were negative. The patient's Monospot test is positive which does correlate with his sore throat and fatigue. He does not have any enlargement of his spleen. At this time symptoms have improved with just ibuprofen he will be given IV Decadron secondary to the inflammatory process. However as he is not having respiratory distress or difficulty with secretions there is no need for further workup and he can be discharged home with symptomatic care <Dr. Gerard Chase, DO - Last Filed: 07/21/24 01:06> [facility] Narrative Medical decision making narrative: Patient presenting today with flulike symptoms that started a few days ago. He reports he has had nasal congestion over the past few weeks but his flu symptoms did not start until 3 to 4 days ago. He is nontoxic-appearing. He is slightly tachycardic initially, he does not appear dehydrated. He was given ibuprofen here and is tolerating p.o. Gatorade. I suspect a viral illness. Rapid strep, COVID/influenza/RSV swabs were obtained, monotest obtained. Chest x-ray obtained to rule out infiltrate and is negative. Labs are pending. Supervisory Physician Note Patient was seen and examined with the Advanced Practice Provider. Nursing notes and vital signs have been reviewed. Pertinent old records have been reviewed. I agree with the essential elements of the ELLEN's history, physical exam, assessment, and plan. The differential diagnosis and management options were discussed with the ELLEN. I participated in determining and agree with the management, procedures, final impression and disposition as documented. See changes noted by me. Please see addendum or separate note for any additional details. 23-year-old male no significant past medical history presents for evaluation of flulike symptoms. Family member recently had pneumonia. Gen: A&O x3, NAD Head: Normocephalic, atraumatic Eyes: No sclera icterus, conjunctiva clear, PERRL, EOMI ENT: TMs clear BL, moist mucous membranes, posterior oropharynx mildly erythematous, uvula midline, tonsils not enlarged, no tonsillar exudates, + nasal congestion Neck: Trachea midline, No JVD, Full ROM, No meningismus CV: RRR, no murmurs, no peripheral edema Resp: Lungs CTA BL, no w/r/c GI: Abd soft, non-distended, non-tender, no r/r/g Musc: Full ROM, no deformity Skin: Warm, dry, no rash Neuro: Alert, oriented, grossly intact, sensation intact Psych: Cooperative, appropriate mood and affect On presentation, patient mildly tachycardic. His temperature is 99.8 ?F. I suspect his tachycardia is secondary to his general malaise as well as temperature. Ibuprofen. Patient tolerating p.o. intake without signs of dehydration. No fluids needed. COVID, flu, RSV ordered along with rapid strep and mono. Chest x-ray ordered. Chest x-ray was personally reviewed interpreted by myself, no pneumonia, effusion, cardiomegaly, pneumothorax. Respiratory panel, strep, monotest was still pending at the end of my shift. Patient was signed out to evening physician and final disposition were pending results but likely discharge home. On chart review, COVID, flu, RSV negative. Strep PCR negative. Morehouse testing positive. Pateient was discharge home. Impression: 1. Mononucleosis Lab Data Labs: Laboratory Results - last 24 hr 07/20/24 22:01 Monoscreen POSITIVE H Radiography Diagnostic Testing: Clinical Impression(s) from Imaging Studies Chest X-Ray 07/20/24 21:35 IMPRESSION: Normal x-ray examination of the chest. Electronically Signed: Ramon Singh MD at 23:33 EST , Discharge Plan Triage Chief Complaint: Cold Sx ED Midlevel Provider: Nani Deleon ED Provider: Gerard Chase Dx/Rx/DC Orders Clinical Impression: Mononucleosis Instructions: ED Mononucleosis Prescriptions: New ibuprofen 600 mg tablet 600 mg PO 4X/DAY PRN (Reason: fever or pain) Qty: 40 0RF prednisone 10 mg tablet 10 mg PO DAILY Qty: 48 0RF Rx Instructions: 6 po qd x 3 days, 4 po qd x 3 days, 2 po qd x 3 days, 1 po qd x 3 days No Action lorazepam [Ativan] 1 mg tablet 1 mg PO DAILY PRN (Reason: anxiety) 10 Days Qty: 5 0RF Rx Instructions: As needed for anxiety. If you use the Ativan no driving. No alcohol use. Stand Alone Forms: ED Work / School Excuse Primary Care Provider: Pauline Boudreaux Referrals: Pauline Boudreaux MD [Primary Care Provider] - Activity Restrictions/Additional Instructions: You tested positive for mononucleosis/mono. This can cause enlargement of your spleen and therefore you need to avoid any high risk activity or contact sports as this could lead to a splenic rupture. Continue with Tylenol and/or ibuprofen for pain and fever control and take the steroid as directed to help with inflammation. Keep yourself well-hydrated and return to the ER should you have any further concerns Print Language: Guyanese Disposition Disposition: Home, Self Care Discharge Date/Time: 07/20/24 23:55
[2024-07-20] MEDS: Ibuprofen 600 MG Tablet PO (22:05)
[2024-07-20 23:01] LABS: Internal QC Validated? YES +Cl - CLEAR BKGD; Monotest POSITIVE (Negative); Record Kit Lot#, Mono 13241033
[2024-07-20] MEDS: dexAMETHasone 10 MG/ML Vial IV (23:47)
== END 2024-07-20 23:55 | disposition home or self-care (01) ==
PROVIDERS: Physician Assistant; Emergency Provider Surgery; PCP Internal Medicine; Visit Provider Surgery
DX: B27.90 Infectious mononucleosis, unspecified without complication (principal); F90.9 Attention-deficit hyperactivity disorder, unspecified type; Z86.14 Personal history of Methicillin resistant Staphylococcus aureus infection; F17.290 Nicotine dependence, other tobacco product, uncomplicated
CPT/HCPCS: 71046; 86308; 87631; 87651; 96374; 99282; A4216

== ENCOUNTER 2024-12-12 23:46 | Emergency (ER) | payer OTHER, SELFPAY ==
[2024-12-12 23:47] VITALS: BP 145/81; PULSE 100; RESP 16; TEMP 36.4; O2SAT 96; BMI 29.3
--- NOTE | 2024-12-13 00:19 | CT_ITS ---
PROCEDURE: SOFT TISSUE NECK WITH CONTRAST 12/13/2024 REASON FOR EXAM: ? EPIGLOTTITIS TECHNIQUE: CT of the soft tissues of the neck from the orbits to the upper mediastinum with intravenous contrast. CONTRAST: 75 cc Isovue 370 IV One or more dose reduction techniques were used (e.g., Automated exposure control, adjustment of the mA and/or kV according to patient size, use of iterative reconstruction technique). RADIATION DOSE SUMMARY: CTDlvol: 17.80 mGy DLP: 605.00 mGycm COMPARISON: None available FINDINGS: The epiglottis and aryepiglottic folds appear within limits. The palatine and lingual tonsils appear within limits. A couple areas of retropharyngeal calcification at the level of C4 and C5 may be sequela of previous infectious process or hemorrhage. No airway narrowing. Vallecula and piriform sinuses appear within limits. No abscess identified. Major vascular structures appear within limits. No adenopathy identified. The parotid and submandibular glands appear within limits. Likely cerumen plug opacify in the left external auditory canal and partial on the right. Mucous retention cyst inferior right maxillary sinus. Mastoids and orbits appear within limits. The visualized apices are clear. CT/Soft Tissue Neck WITH Contrast IMPRESSION: The epiglottis and aryepiglottic folds appear within limits. Likely cerumen plug opacify in the left external auditory canal and partial on the right. Reading Location: [id number]
[2024-12-13] MEDS: Ketorolac 30 MG/ML Syringe IV (00:29)
[2024-12-13] MEDS: dexAMETHasone 10 MG/ML Vial IV (00:29)
[2024-12-13] MEDS: 0.9% Normal Saline (1000mL) 1,000 ML 999 ML IV (00:29)
[2024-12-13 00:42] LABS: Absolute Lymphocyte Count 4.02 X10^3/uL (0.83-4.51); Basophil# 0.05 X10^3/uL; Basophil% 0.3 % (0-1); Eosinophil# 0.13 X10^3/uL; Eosinophils% 0.8 % (0-5); Hematocrit 40.3 % (40-54); Hemoglobin 13.9 g/dL (13.0-16.5); Lymphocyte # 4.02 X10^3/ul (0.83-4.51); Lymphocyte % 26.2 % (19-41); Mean Corp Hgb Conc 34.5 g/dL (32-36); Mean Corpuscular Hgb 29.3 pg (27.0-32.0); Mean Platelet Vol. 9.8 fl (6.2-12.0); Monocyte# 1.07 X10^3/uL; NRBC Flagged by Analyzer 0 % (0-5); Neutrophil # 10.02 X10^3/uL (2.7-7.7); Neutrophil % 65.4 % (47-70); Platelet Count 256 K/mm3 (150-450); RBC Distribution Width CV 12.3 % (11.6-14.6); RBC Distribution Width SD 38.1 fl (35.1-43.9); Red Blood Count 4.74 M/mm3 (4.6-6.2); White Blood Count 15.3 K/mm3 (4.4-11.0)
[2024-12-13 01:06] LABS: Anion Gap 11 (5-15); BUN 15 mg/dL (4-19); BUN/Creat Ratio 18.9 RATIO (10-20); Calcium,Total 9.2 mg/dL (7.6-11.0); Carbon Dioxide 24.4 mmol/L (21.0-32.0); Chloride 103 mmol/L (98-108); Creatinine, Serum 0.79 mg/dL (0.70-1.20); EST Glomerular Filtration Rate 128 (>60); Estimated Creatinine Clearance 191.99 ml/min (50-250); Glucose 113 mg/dL (70-99); Potassium 3.8 mmol/L (3.3-5.1); Sodium Level 139 mmol/L (133-145)
[2024-12-13 01:10] LABS: Lactic Acid < 1.0 mmol/L (0.0-2.0)
--- NOTE | 2024-12-13 01:42 | EDS_ITS ---
HPI History of Present Illness Chief Complaint: Sore Throat Informant: patient and parent Narrative Narrative: Patient is a 24-year-old male with past medical history of cleft palate as well as mononucleosis. He has been following with ENT secondary to recurrent bouts of sore throat. Patient and mother state he saw ENT earlier today and that they are performing an outpatient workup for potential infection. However mother and patient states that he has not been eating or drinking secondary to his throat pain and with concern for dehydration or potentially missed infection he was brought in for evaluation [facility] Medical History External hemorrhoid Stress headaches ADHD Right hand pain Recurrent MRSA abscess Home Medications ?Medication ?Instructions ?Recorded ?Last Taken ?Type lorazepam 1 mg tablet (Ativan) 1 mg PO DAILY PRN anxie ty 10 days 05/26/24 Unknow n Rx #5 tabs ibuprofen 600 mg tablet 600 mg PO 4X/DAY PRN fever o r pain 07/20/24 Unknown Rx #40 tabs prednisone 10 mg tablet 10 mg PO DAILY #48 TABLETS 1 09/20/23 Unknown Rx prednisolone 15 mg/5 mL oral 30 mg (10 mL) PO DAILY 7 days #70 12/13/24 Unknown Rx solution mL Allergy/AdvReac Type Severity Reaction Status Date / Time No Known Allergies Allergy Verified 12/12/24 23:46 Family History Grandfather Heart disease Grandmother Hypertension Diabetes Brother Autism Surgical History Hx of tonsillectomy History of repair of congenital cleft palate Social History adopted: No household members: family current occupational status: employed current occupation: [employer] pets and animals: Yes pets and animals: dog(s) Smoking Status: Current every day smoker tobacco type: e-cigarettes Tobacco: How many years used: 3 Electronic Cigarette Use: not used alcohol intake: current alcohol intake frequency: a few times a month substance use type: does not use caffeine: No frequency: 3-4 times per week seatbelt use: always do you feel safe at home: Yes ROS ROS ED Constitutional Constitutional ED: Denies chills or fever(s) Eyes Eyes: Denies change in vision ENT ENT ED: Reports sore throat; Denies rhinorrhea Cardiovascular Cardiovascular: Denies chest pain Respiratory/Chest Respiratory/Chest: Denies cough or dyspnea Gastrointestinal Gastrointestinal: Denies abdominal pain, diarrhea, nausea or vomiting Genitourinary Genitourinary ED: Denies dysuria Musculoskeletal Musculoskeletal: Reports neck pain Integumentary Denies rash Neurologic Neurologic: Denies headache(s) Hematologic/Lymphatic Hematologic/Lymphatic: Denies easy bleeding or easy bruising Allergic/Immunologic Allergic/Immunologic ED: Denies mouth swelling or tongue swelling EXAM Physical Exam Const Vital Signs: 12/12/24 23:47 12/13/24 01:57 Temperature 97.5 F L 98.7 F Temperature Source Temporal Pulse Rate 100 67 Respiratory Rate 16 12 Blood Pressure 145/81 H 116/70 Blood Pressure Mean 102 85 Pulse Ox 96 100 Positive well nourished and well developed General Appearance ED: well developed; Negative for pallor HEENT Reports dry mucous membranes HEENT Narrative: No tongue or lip swelling no oral lesions no airway edema or compromise Patient has dry mucous membranes Neurosurgical changes consistent with history of cleft palate repair and tonsillectomy. There is diffuse erythema in the posterior pharynx but no exudates or hard palate petechiae Patient does have a muffled change voice but no signs of trismus No brawny edema in the submental space to suggest Moreno angina Mouth ED: Yes dry mucous membranes Mouth: dry mucous membranes Eyes PERRL and EOMs intact bilaterally General Eye ED: Negative for scleral icterus Neck supple Neck Narrative: There is pain with palpation of the external thyroid cartilage without subcutaneous emphysema noted Resp normal respiratory effort and clear to auscultation bilaterally Cardio regular rate and regular rhythm Extremity normal to inspection Neuro oriented x3, CN's II-XII intact bilaterally and no sensory deficits noted Sensorium / Orientation: alert Motor Exam: strength 5/5 throughout Psych Mood & Affect: anxious Skin no rashes or lesions noted Skin Narrative: Skin turgor slightly increased consistent with mild dehydration General Skin Exam: Negative for jaundice or pallor MDM MDM MDM Narrative Medical decision making narrative: Patient arrived to the ER overall with stable vitals. Physical exam show changes consistent with pharyngitis as there is diffuse erythema in the posterior pharynx but there is no obvious findings to suggest peritonsillar or retropharyngeal abscess. As he does have a muffled voice and pain with palpation of the anterior neck there is concern for potential epiglottitis. Therefore I did elect to perform a CT of the soft tissues with IV contrast. As his history and exam also shows changes concerning for dehydration there is concern he may have acute kidney injury or electrolyte abnormality. He was given 1 L of IV fluid as well as Toradol and Decadron. This helped resolve his symptoms and improved his vital signs. The patient's white count is elevated at 15 but chart review reveals that he has been elevated in the past and I feel this is most likely a viral response or stress response. Otherwise his lactic acid is normal he does not have WILBER or clinically significant electrolyte abnormality. The CT of the neck reveals no findings of epiglottitis or secondary infection. The patient is already established with ENT and is receiving a workup from the office and as he does not have signs of WILBER systemic infection or epiglottitis or airway compromise he does not need placed in the hospital or IV antibiotics and he is otherwise safe for discharge History & Record Review Discussion w/independent historian: Patient and Family Lab Data Attestation: I reviewed the patient's lab results. Labs: Laboratory Results - last 24 hr 12/13/24 00:30 WBC 15.3 H RBC 4.74 Hgb 13.9 Hct 40.3 MCV 85.0 MCH 29.3 MCHC 34.5 RDW Std Deviation 38.1 RDW Coeff of Edmundo 12.3 Plt Count 256 MPV 9.8 Immature Gran % (Auto) 0.300 Neut % (Auto) 65.4 Lymph % (Auto) 26.2 Ford % (Auto) 7.0 Eos % (Auto) 0.8 Baso % (Auto) 0.3 Absolute Neuts (auto) 10.0 H Absolute Lymphs (auto) 4.02 Nucleated RBC % 0 Sodium 139 Potassium 3.8 Chloride 103 Carbon Dioxide 24.4 Anion Gap 11 BUN 15 Creatinine 0.79 Estim Creat Clear Calc 191.99 Est GFR (MDRD) Non-Af 128 BUN/Creatinine Ratio 18.9 Glucose 113 H Lactic Acid < 1.0 Calcium 9.2 Radiography Diagnostic Testing: Clinical Impression(s) from Imaging Studies Soft Tissue Neck CT 12/13/24 00:19 IMPRESSION: The epiglottis and aryepiglottic folds appear within limits. Likely cerumen plug opacify in the left external auditory canal and partial on the right. Reading Location: [facility] Discharge Plan Triage Chief Complaint: Sore Throat ED Provider: Antonio Romero Dx/Rx/DC Orders Clinical Impression: Pharyngitis, Dehydration, ADHD Instructions: ED Pharyngitis, Viral Prescriptions: New prednisolone 15 mg/5 mL solution 30 mg PO DAILY 7 Days Qty: 70 0RF No Action lorazepam [Ativan] 1 mg tablet 1 mg PO DAILY PRN (Reason: anxiety) 10 Days Qty: 5 0RF Rx Instructions: As needed for anxiety. If you use the Ativan no driving. No alcohol use. ibuprofen 600 mg tablet 600 mg PO 4X/DAY PRN (Reason: fever or pain) Qty: 40 0RF prednisone 10 mg tablet 10 mg PO DAILY Qty: 48 0RF Rx Instructions: 6 po qd x 3 days, 4 po qd x 3 days, 2 po qd x 3 days, 1 po qd x 3 days Primary Care Provider: Pauline Boudreaux Referrals: Pauline Boudreaux MD [Primary Care Provider] - Activity Restrictions/Additional Instructions: Your CT scan showed no sign of epiglottitis. Take the steroid as directed to help control inflammation which should help control pain and help with swallowing. Continue to follow-up with ear nose and throat for further evaluation and return to the ER should you have any further concerns Print Language: Kinyarwanda Disposition Disposition: Home, Self Care Discharge Date/Time: 12/13/24 01:57
[2024-12-13 01:57] VITALS: BP 116/70; PULSE 67; RESP 12; TEMP 37.1; O2SAT 100
== END 2024-12-13 01:57 | disposition home or self-care (01) ==
PROVIDERS: Emergency Provider Emergency Medicine; PCP Internal Medicine; Visit Provider Emergency Medicine
DX: J02.9 Acute pharyngitis, unspecified (principal); E86.0 Dehydration; F90.9 Attention-deficit hyperactivity disorder, unspecified type; F17.290 Nicotine dependence, other tobacco product, uncomplicated; Z87.730 Personal history of (corrected) cleft lip and palate
CPT/HCPCS: 70491; 80048; 83605; 85025; 96361; 96374; 96375; 99283; Q9967

== ENCOUNTER → 2024-12-12 | Outpatient (CLI) | payer OTHER, SELFPAY | END | disposition home or self-care (01) | LOC: LABSPEC 17:00 | PROVIDERS: PCP Internal Medicine | DX: J02.9 Acute pharyngitis, unspecified (principal) | CPT/HCPCS: 87070; 87077 ==